=== PATIENT | female | born 1990 | race American Indian/Alaskan Native ===

== ENCOUNTER 2016-05-29 07:15 | Emergency (ER) | payer MEDICAID ==
[2016-05-29 08:00] LABS: Basophils % (Auto) 0.4 % (0.0-1.8); Hematocrit 41.6 % (30.3-42.9); Hemoglobin 13.8 gm/dl (10.1-14.3); Mean Corpuscular HGB Conc 33 % (30-34); Mean Corpuscular Hemoglobin 29 pg (28-32); Mean Corpuscular Volume 88 fl (79-97); Platelet Count 228 K/mm3 (140-440); Red Blood Count 4.72 M/mm3 (3.65-5.03); Red Cell Distribution Width 12.9 % (13.2-15.2); White Blood Count 8.9 K/mm3 (4.5-11.0)
[2016-05-29 08:26] LABS: Alanine Aminotransferase 16 units/L (7-56); Albumin 4.6 g/dL (3.9-5); Albumin/Globulin Ratio 1.2 %; Alkaline Phosphatase 63 units/L (35-129); Anion Gap 20 mmol/L; Bilirubin,Total 0.3 mg/dL (0.1-1.2); Blood Urea Nitrogen 12 mg/dL (7-17); Calcium 9.4 mg/dL (8.4-10.2); Carbon Dioxide 21 mmol/L (22-30); Chloride 101.3 mmol/L (98-107); Glucose 106 mg/dL (65-100); Lipase 37 units/L (13-60); Sodium 138 mmol/L (137-145); Total Protein 8.4 g/dL (6.3-8.2)
[2016-05-29 08:39] LABS: Bacteria,Urine 1+ /HPF (Negative); Bilirubin,Urine NEG (Negative); Blood,Urine SM (Negative); Ketones,Urine NEG (Negative); Leukocyte Esterase,Urine NEG (Negative); Mucus,Urine 3+ /HPF; Nitrite,Urine NEG (Negative); Urobilinogen,Urine < 2.0 mg/dL (<2.0)
[2016-05-29] MEDS ORDERED: ZOFRAN IV ONE (09:24)
[2016-05-29] MEDS ORDERED: NACL 0.9% 1000 ML IV ONE (09:24)
--- NOTE | 2016-05-29 10:42 | Emergency Department Report ---
HPI - General Chief Complaint: Abdominal Pain Time Seen by Provider: 05/29/16 09:19 - HPI HPI: Chief complaint: Nausea vomiting diarrhea HPI: Patient works as a personal lines insurance agent and states a client had nausea vomiting and diarrhea on Sunday that she cleaned up and then when patient got home she had the same symptoms. Patient states she's vomited approximately 4 times a day in 5-6 episodes of diarrhea since that time. Patient states she feels like it is getting worse. Patient denies any fever or lightheadedness. Mode of arrival: [private car] Source: [Patient] Began:Sunday Duration: 2 days Context:see above Quality: crampy abd pain just before episode of diarrhea Severity: 7 out of 10, currently 0 Improved with: see above Worsened with: eating and drinking Associated signs and symptoms:no fever ED Past Medical Hx - Past Medical History Previous Medical History?: Yes Hx Asthma: Yes - Surgical History Past Surgical History?: No - Social History Smoking Status: Never Smoker Substance Use Type: None - Medications Home Medications: Home Medications Medication Instructions Recorded Confirmed Last Taken Type Ondansetron [Zofran Odt] 4 mg PO Q4H PRN #7 tab.rapdis 05/29/16 Unknown Rx ED Review of Systems ROS: Stated complaint: N/V ABD PAIN Other details as noted in HPI ROS Constitutional: No fever ENT: No uri symptoms Cardiovascular: No chest pain Respiratory: No sob or cough GI: See HPI : No dysuria frequency or urgency, Skin: No rash Neuro: No focal weakness or numbness Psych: No depression Henry/lymph: No edema Physical Exam - Physical Exam Vital Signs: Vital Signs 05/29/16 05/29/16 05/29/16 07:26 08:20 08:40 Temperature 98.4 F 98.4 F Pulse Rate 67 67 Respiratory 16 16 16 Rate Blood Pressure 112/75 Blood Pressure 112/75 [Left] O2 Sat by Pulse 98 99 99 Oximetry Physical Exam: GENERAL: The patient is well-developed well-nourished . HEENT: Normocephalic. Atraumatic. Extraocular motions are intact. Patient has moist mucous membranes. NECK: Supple. No meningitic signs are noted. There is no adenopathy noted. CHEST/LUNGS: Clear to auscultation. There is no respiratory distress noted. HEART/CARDIOVASCULAR: Regular. There is no tachycardia. There is no gallop rub or murmur. ABDOMEN: Abdomen is soft, nontender. Patient has normal bowel sounds. There is no abdominal distention. SKIN: There is no rash. There is no edema. There is no diaphoresis. NEURO: The patient is awake, alert, and oriented. The patient is cooperative. The patient has no focal neurologic deficits. The patient has normal speech. MUSCULOSKELETAL: There is no tenderness or deformity. There is no limitation range of motion. There is no evidence of acute injury. ED Course Vital Signs 05/29/16 05/29/16 05/29/16 07:26 08:20 08:40 Temperature 98.4 F 98.4 F Pulse Rate 67 67 Respiratory 16 16 16 Rate Blood Pressure 112/75 Blood Pressure 112/75 [Left] O2 Sat by Pulse 98 99 99 Oximetry - Reevaluation(s) Reevaluation #1: 05/29/16 11:10 Patient given a liter normal saline and 4 mg of IV Zofran with improvement. Patient had one episode of diarrhea here in emergency department that was sent off and was negative for WBCs. ED Medical Decision Making - Lab Data Result diagrams: 05/29/16 07:49 05/29/16 07:49 Stool smear for WBCs negative. Critical care attestation.: If time is entered above; I have spent that time in minutes in the direct care of this critically ill patient, excluding procedure time. ED Disposition Clinical Impression: Gastroenteritis Disposition: DISCHARGED TO HOME OR SELFCARE Is pt being admited?: No Does the pt Need Aspirin: No Condition: Stable Instructions: Gastroenteritis (ED) Additional Instructions: Take Imodium [id number] for diarrhea. Prescriptions: Ondansetron [Zofran Odt] 4 mg PO Q4H PRN #7 tab.rapdis PRN Reason: Nausea And Vomiting Referrals: PRIMARY CARE, [Primary Care Provider] - 3-5 Days [facility] [Provider Group] - as needed (Follow-up with gastroenterology if your diarrhea persists.) [facility] [Provider Group] - 3-5 Days ([place] is a clinic that sees patients on a sliding scale basis based on their income that you can follow-up with as needed) Time of Disposition: 11:14
[2016-05-29 11:18] VITALS: BP 116/68
== END 2016-05-29 11:18 | disposition home or self-care (01) ==
LOC: ED 07:15
DX: K52.9 Noninfective gastroenteritis and colitis, unspecified (principal); J45.909 Unspecified asthma, uncomplicated; Z79.899 Other long term (current) drug therapy
CPT/HCPCS: 36415; 80053; 81001; 83690; 84703; 85007; 85025; 87045; 87493; 96361; 96374; 99283; J2405; J7030

== ENCOUNTER 2019-03-24 15:36 | Emergency (ER) | payer SELFPAY ==
--- NOTE | 2019-03-24 16:45 | Emergency Department Report ---
Blank Doc - Documentation Documentation: 28-year-old female that presents with pelvic pain and vaginal discharge. This initial assessment/diagnostic orders/clinical plan/treatment(s) is/are subject to change based on patient's health status, clinical progression and re- assessment by fellow clinical providers in the ED. Further treatment and workup at subsequent clinical providers discretion. Patient/guardians urged not to elope from the ED as their condition may be serious if not clinically assessed and managed. Initial orders include: 1- Patient sent to [facility] for further evaluation and treatment 2- UA 3- pelvic exam to be done
[2019-03-24 16:46] VITALS: BP 118/78
== END 2019-03-24 19:23 | disposition left against medical advice (07) ==
LOC: ED 15:36
DX: R10.9 Unspecified abdominal pain (principal); N89.8 Other specified noninflammatory disorders of vagina; Z53.21 Procedure and treatment not carried out due to patient leaving prior to being seen by health care provider